=== PATIENT | male | born 1960 | race Caucasian/White ===

== ENCOUNTER → 2017-07-18 | Outpatient (CLI) | payer BC ==
--- NOTE | 2017-07-18 14:38 | DIAGNOSTIC IMAGING REPORT ---
LEFT HIP 2 VIEWS HISTORY: M25.552 Left hip pain ACUTE [id number] COMPARISON: None. FINDINGS: There is no fracture or dislocation. Soft tissues are unremarkable. The visualized pelvic bones are intact. Moderate cartilage space narrowing with marginal osteophytes seen within the left hip consistent with osteoarthritis. There is a 1.8 cm intra-articular loose body anterior to the left femoral neck. IMPRESSION: 1. No fracture or dislocation within the left hip. 2. Moderate left hip osteoarthritis. 3. A 1.8 cm intra-articular loose body within the left hip. Electronically signed by: Moe Cagle M.D. 07/18/2017 2:36 PM Dictated Date/Time: 07/18/2017 2:35 PM
== END | disposition home or self-care (01) ==
LOC: C.RAD1850 14:24
PROVIDERS: ATTEND Internal Medicine
DX: M25.552 Pain in left hip (principal); M16.12 Unilateral primary osteoarthritis, left hip; M24.052 Loose body in left hip

== ENCOUNTER → 2017-08-14 | Outpatient (CLI) | payer BC ==
[2017-08-14 17:39] LABS: BASO % 0.4 %; BASO ABS # 0.03 K/uL (0-0.2); EOS % 2.9 %; HEMATOCRIT 44.4 % (42-52); HEMOGLOBIN 14.8 g/dL (14.0-18.0); IG# 0.01 K/uL (0.00-0.02); LYMPH % 27.4 %; LYMPH ABS # 1.88 K/uL (1.2-3.4); MEAN CELL VOLUME 86.7 fL (80-100); MEAN CORPUSCULAR HEMOGLOBIN 28.9 pg (25-34); MEAN CORPUSCULAR HGB CONC 33.3 g/dl (32-36); MEAN PLATELET VOLUME 12.2 fL (7.4-10.4); MONO % 8.9 %; MONO ABS # 0.61 K/uL (0.11-0.59); NEUT % 60.3 %; NEUT ABS # 4.13 K/uL (1.4-6.5); PLATELET COUNT 177 K/uL (130-400); RED CELL DISTRIBUTION WIDTH CV 13.8 % (11.5-14.5); RED CELL DISTRIBUTION WIDTH SD 43.7 fL (36.4-46.3); WHITE BLOOD COUNT 6.86 K/uL (4.8-10.8)
[2017-08-14 17:55] LABS: ALBUMIN 3.5 gm/dl (3.4-5.0); ALT/SGPT 39 U/L (12-78); AST/SGOT 18 U/L (15-37); BLOOD UREA NITROGEN 21 mg/dl (7-18); CALCIUM 9.1 mg/dl (8.5-10.1); CARBON DIOXIDE 30 mmol/L (21-32); CHOLESTEROL 184 mg/dl (0-200); CREATININE 0.99 mg/dl (0.60-1.40); GLUCOSE 102 mg/dl (70-99); POTASSIUM 4.6 mmol/L (3.5-5.1); SODIUM 138 mmol/L (136-145)
[2017-08-14 17:59] LABS: ALKALINE PHOSPHATASE 81 U/L (45-117); LDL CHOLESTEROL CALCULATED 114 mg/dl; TOTAL PROTEIN 7.1 gm/dl (6.4-8.2)
[2017-08-15 06:22] LABS: HEMOGLOBIN A1C 5.7 % (4.5-5.6)
== END | disposition home or self-care (01) ==
LOC: C.LABBFT 11:15
PROVIDERS: ATTEND Nurse Practitioner
DX: E78.00 Pure hypercholesterolemia, unspecified (principal); R73.03 Prediabetes; N40.0 Benign prostatic hyperplasia without lower urinary tract symptoms

== ENCOUNTER → 2017-09-18 | Outpatient (CLI) | payer BC | END | disposition home or self-care (01) | LOC: C.RDSM 15:15 | PROVIDERS: ATTEND Orthopaedic Surgery | DX: M25.552 Pain in left hip (principal) ==

== ENCOUNTER 2017-10-12 16:50 | Emergency (ER) | payer BC ==
[~2017-10-12] VITALS: Ht 193 cm; Wt 196.0 kg
[2017-10-12] MEDS ORDERED: CEFAZOLIN SOD 1 GM VIAL IV STA (17:20)
[2017-10-12] MEDS ORDERED: CARV12.52 PO (17:50)
[2017-10-12] MEDS ORDERED: TRAM-10 PO (17:50)
[2017-10-12] MEDS ORDERED: ALPR-411 PO (17:50)
[2017-10-12] MEDS ORDERED: LAMO200T PO (17:50)
[2017-10-12] MEDS ORDERED: TAMS0.4C38 PO (17:50)
[2017-10-12] MEDS ORDERED: PRLSR20 PO (17:50)
[2017-10-12] MEDS ORDERED: DICL75TA2 PO (17:50)
[2017-10-12] MEDS ORDERED: CITA40TA4 PO (17:50)
[2017-10-12] MEDS ORDERED: POTA10CA28 PO (17:50)
[2017-10-12] MEDS ORDERED: PRVC/40 PO (17:50)
[2017-10-12] MEDS ORDERED: LISI40TA PO (17:50)
[2017-10-12] MEDS ORDERED: FURO-85 PO (17:50)
[2017-10-12 17:53] VITALS: O2SAT 91
[2017-10-12 17:53] LABS: BASO % 0.2 %; BASO ABS # 0.02 K/uL (0-0.2); EOS % 0.6 %; EOS ABS # 0.07 K/uL (0-0.5); HEMATOCRIT 40.6 % (42-52); IG# 0.03 K/uL (0.00-0.02); LYMPH % 9.1 %; LYMPH ABS # 1.07 K/uL (1.2-3.4); MEAN CELL VOLUME 83.7 fL (80-100); MEAN CORPUSCULAR HEMOGLOBIN 28.9 pg (25-34); MEAN CORPUSCULAR HGB CONC 34.5 g/dl (32-36); MEAN PLATELET VOLUME 11.2 fL (7.4-10.4); MONO ABS # 1.17 K/uL (0.11-0.59); NEUT % 79.8 %; NEUT ABS # 9.37 K/uL (1.4-6.5); PLATELET COUNT 159 K/uL (130-400); RED CELL DISTRIBUTION WIDTH CV 13.5 % (11.5-14.5); RED CELL DISTRIBUTION WIDTH SD 40.9 fL (36.4-46.3); WHITE BLOOD COUNT 11.73 K/uL (4.8-10.8)
[2017-10-12] MEDS ORDERED: ACET-1256 PO (17:55)
[2017-10-12 17:59] VITALS: Ht 193 cm; Wt 196.0 kg
[2017-10-12 18:03] LABS: PTT PATIENT 26.1 SECONDS (21.0-31.0)
[2017-10-12 18:18] LABS: ALBUMIN 3.3 gm/dl (3.4-5.0); CALCIUM 8.9 mg/dl (8.5-10.1); CREATININE 0.8 mg/dl (0.60-1.40); POTASSIUM 3.8 mmol/L (3.5-5.1)
[2017-10-12 18:21] LABS: TOTAL PROTEIN 7.3 gm/dl (6.4-8.2)
--- NOTE | 2017-10-12 19:00 | DIAGNOSTIC IMAGING REPORT ---
R VENOUS DOPP LOWER EXT UNILAT CLINICAL HISTORY: right leg eval for dvt pain. Edema. TECHNIQUE: Venous Doppler COMPARISON STUDY: None FINDINGS: Normal study IMPRESSION: Normal study The above report was generated using voice recognition software. It may contain grammatical, syntax or spelling errors. Electronically signed by: Jovanny Rose M.D. 10/12/2017 6:58 PM Dictated Date/Time: 10/12/2017 6:58 PM
[2017-10-12] MEDS ORDERED: SULF800T23 PO (19:11)
[2017-10-12] MEDS ORDERED: CEPH500C PO (19:11)
[2017-10-12] MEDS ORDERED: CEPHALEXIN 500MG HOME PACK 1 EA BTL PO ONE (19:15)
[2017-10-12] MEDS ORDERED: SEPTRA DS HOME PACK 1 EA VIAL PO ONE (19:15)
[2017-10-12 19:35] VITALS: BP 129/79; PULSE 87; TEMP 37; O2SAT 93
--- NOTE | 2017-10-13 00:20 | EMERGENCY ROOM VISIT NOTE ---
History Report prepared by Hans: Liam Schneider Under the Supervision of: Dr. Erwin Thapa M.D. First contact with patient: 17:11 Chief Complaint: INFECTION Stated Complaint: RIGHT LOWER LEG INFECTION History of Present Illness The patient is a 56 year old male with a history of cellulitis who presents to the Emergency Room with complaints of a worsening right lower leg infection that was discovered around 0400 this morning. He states that yesterday he had chills and shakes, and just could not get warm. The patient says that he did not take his temperature, but he felt feverish. He states that he has felt that he has not been regulating his temperature well off and on today. The patient states that he did not injure his leg. He says that when he first noticed it, there was a small area of redness on the back of his right lower leg that was warm and hot, but then the area of redness and pain has been spreading ever since then. He denies any headaches, vomiting, chest pain, abdominal pain, or left leg problems. The patient states that he has not had any recent travels, and has no history of clots in her legs or lungs. He notes that in 1998, he came back from a month from [place] and had cellulitis around the same area of the right leg. Source of History: patient Onset: 0400 this morning Position: leg (right lower) Quality: other (infection) Timing: worsening Associated Symptoms: + fevers (felt feverish), + chills, No headache, No chest pain, No vomiting, No abdominal pain Note: Associated symptoms: Right lower leg warm and hot with pain. Review of Systems See HPI for pertinent positives & negatives. A total of 10 systems reviewed and were otherwise negative. Past Medical & Surgical Medical Problems: (1) HLD (hyperlipidemia) (2) HTN (hypertension) Family History Diabetes mellitus Heart disease Social History Smoking Status: Never Smoker Drug Use: none Marital Status: Housing Status: lives with family Current/Historical Medications Scheduled Carvedilol (Coreg), 1 TAB PO BID Cephalexin Monohydrate (Keflex), 500 MG PO TID Citalopram (Citalopram Hydrobromide), 1 TAB PO DAILY Furosemide (Lasix), 1 TAB PO DAILY Lamotrigine (Lamictal), 1 TAB PO DAILY Lisinopril (Zestril), 1 TAB PO DAILY Omeprazole (Prilosec), 20 MG PO DAILY Potassium Chloride (Micro-K Ext Rel), 10 MEQ PO DAILY Pravastatin Sod (Pravastatin Sodium), 1 TAB PO HS Sulfa/Trimethoprim (Bactrim Ds 800MG/160MG), 1 TAB PO BID Tamsulosin Hcl (Flomax), 1 CAP PO DAILY Scheduled PRN Acetaminophen (Tylenol), 2 TAB PO TID PRN for Pain Alprazolam (Xanax), 0.5 MG PO DAILY PRN for Anxiety Diclofenac Sodium (Voltaren), 1 TAB PO BID PRN for Pain Tramadol (Ultram), 50-100 MG PO Q4H PRN for Pain Allergies Coded Allergies: No Known Allergies (Unverified , 10/12/17) Physical Exam Vital Signs Date Time Temp Pulse Resp B/P (MAP) Pulse Ox O2 Delivery O2 Flow Rate FiO2 10/12/17 19:35 37.0 87 20 129/79 93 10/12/17 17:54 85 20 117/58 91 Room Air 10/12/17 17:53 91 Room Air 10/12/17 16:59 37.0 89 22 181/132 96 Room Air Physical Exam Constitutional: Vital signs reviewed. Eyes: Pupils are equal round reactive to light. Conjunctiva are noninjected. ENT: Pharynx is clear without erythema or exudate. Mucous membranes are moist. Neck supple without meningeal signs. Respiratory: Clear to auscultation bilaterally. Breath sounds are equal bilaterally. Cardiovascular: Regular rate and rhythm. No rubs or gallops. GI: Soft, nondistended and nontender. Bowel sounds are present. Musculoskeletal: Right leg shows erythema to the posterior mid calf and anterior fernandes above ankle. Integumentary: No cyanosis. Neurological: The patient is awake and alert. No focal deficits. Psychiatric: Normal affect. Medical Decision & Procedures ER Provider Diagnostic Interpretation: US results as stated below per my review and radiologist interpretation. R VENOUS DOPP LOWER EXT UNILAT CLINICAL HISTORY: right leg eval for dvt pain. Edema. TECHNIQUE: Venous Doppler COMPARISON STUDY: None FINDINGS: Normal study IMPRESSION: Normal study The above report was generated using voice recognition software. It may contain grammatical, syntax or spelling errors. Electronically signed by: Jovanny Rose M.D. 10/12/2017 6:58 PM Dictated Date/Time: 10/12/2017 6:58 PM Laboratory Results 10/12/17 17:35 Red Blood Count 4.85, Mean Corpuscular Volume 83.7, Mean Corpuscular Hemoglobin 28.9, Mean Corpuscular Hemoglobin Concent 34.5, Mean Platelet Volume 11.2, Neutrophils (%) (Auto) 79.8, Lymphocytes (%) (Auto) 9.1, Monocytes (%) (Auto) 10.0, Eosinophils (%) (Auto) 0.6, Basophils (%) (Auto) 0.2, Neutrophils # (Auto ) 9.37, Lymphocytes # (Auto) 1.07, Monocytes # (Auto) 1.17, Eosinophils # (Auto ) 0.07, Basophils # (Auto) 0.02 10/12/17 17:35 Test 10/12/17 17:35 10/12/17 17:44 White Blood Count 11.73 K/uL (4.8-10.8) Red Blood Count 4.85 M/uL (4.7-6.1) Hemoglobin 14.0 g/dL (14.0-18.0) Hematocrit 40.6 % (42-52) Mean Corpuscular Volume 83.7 fL (80-100) Mean Corpuscular Hemoglobin 28.9 pg (25-34) Mean Corpuscular Hemoglobin Concent 34.5 g/dl (32-36) Platelet Count 159 K/uL (130-400) Mean Platelet Volume 11.2 fL (7.4-10.4) Neutrophils (%) (Auto) 79.8 % Lymphocytes (%) (Auto) 9.1 % Monocytes (%) (Auto) 10.0 % Eosinophils (%) (Auto) 0.6 % Basophils (%) (Auto) 0.2 % Neutrophils # (Auto) 9.37 K/uL (1.4-6.5) Lymphocytes # (Auto) 1.07 K/uL (1.2-3.4) Monocytes # (Auto) 1.17 K/uL (0.11-0.59) Eosinophils # (Auto) 0.07 K/uL (0-0.5) Basophils # (Auto) 0.02 K/uL (0-0.2) RDW Standard Deviation 40.9 fL (36.4-46.3) RDW Coefficient of Variation 13.5 % (11.5-14.5) Immature Granulocyte % (Auto) 0.3 % Immature Granulocyte # (Auto) 0.03 K/uL (0.00-0.02) Prothrombin Time 10.6 SECONDS (9.0-12.0) Prothromb Time International Ratio 1.0 (0.9-1.1) Activated Partial Thromboplast Time 26.1 SECONDS (21.0-31.0) Partial Thromboplastin Ratio 1.0 Anion Gap 6.0 mmol/L (3-11) Est Creatinine Clear Calc Drug Dose 192.5 ml/min Estimated GFR () 116.6 Estimated GFR (Non- 100.6 BUN/Creatinine Ratio 19.0 (10-20) Calcium Level 8.9 mg/dl (8.5-10.1) Total Bilirubin 0.6 mg/dl (0.2-1) Aspartate Amino Transf (AST/SGOT) 13 U/L (15-37) Alanine Aminotransferase (ALT/SGPT) 26 U/L (12-78) Alkaline Phosphatase 90 U/L (45-117) Total Protein 7.3 gm/dl (6.4-8.2) Albumin 3.3 gm/dl (3.4-5.0) Globulin 4.0 gm/dl (2.5-4.0) Albumin/Globulin Ratio 0.8 (0.9-2) Bedside Lactic Acid Venous 0.77 mmol/L (0.90-1.70) Laboratory results as reviewed by me. Medications Administered Medications (Trade) Dose Ordered Sig/Karel Route Start Time Stop Time Status Last Admin Dose Admin Cefazolin Sodium (Ancef Inj) 1,000 mg NOW STAT IV 10/12/17 17:20 10/12/17 17:22 DC 10/12/17 17:53 1,000 MG Cephalexin Monohydrate (Keflex 500MG Home Pack) 1 homepack NOW ONCE PO 10/12/17 19:15 10/12/17 19:16 DC 10/12/17 19:15 1 HOMEPACK Trimethoprim/ Sulfamethoxazole (Sulfameth/ Trimeth Ds 800/ 160MG Home Pack) 1 homepack UD ONCE PO 10/12/17 19:15 10/12/17 19:16 DC 10/12/17 19:15 1 HOMEPACK ED Course 171: The patient was evaluated in room B9. A complete history and physical exam was performed. 1719: Ancef Inj 1000 mg IV. 1908: Upon reevaluation, the patient appeared to be resting comfortably. I discussed tonight's findings with him, and recommended that he follow-up with his doctor in 2 days. He verbalized agreement of the treatment plan. He was discharged home. 1914: Sulfameth/Trimeth Ds 800/160MG Home Pack 1 homepack PO, Keflex 500MG Home Pack 1 homepack PO. Medical Decision This is a 56-year-old male presents with right leg pain. Differential diagnosis includes cellulitis, sepsis, abscess, DVT, superficial thrombophlebitis. I did perform a limited focused review of portions of the patient's old chart on the electronic medical record. The patient has had no recent pertinent visits to this hospital. I did evaluate the patient as noted above. IV access was established. I did treat the patient with Ancef 1 g IV. I did order and review the patient's blood work as noted in the electronic medical record. White blood cell count is slightly elevated. Lactic acid is not elevated. I did order a Doppler ultrasound of the right leg. I did review the images myself as well as the radiology report as described above. There is no evidence of DVT. I did discuss the test results with the patient. He has no signs of sepsis. He was advised to follow-up in 48 hours with his doctor for reassessment of his cellulitis. He was discharged with a prescription for Keflex and Bactrim and given home packs for these medications. He was given return instructions as outlined below. Medication Reconcilliation Current Medication List: was personally reviewed by me Blood Pressure Screening Patient's blood pressure: Elevated blood pressure Impression Primary Impression: Cellulitis of right leg Scribe Attestation The scribe's documentation has been prepared under my direct and personally reviewed by me in its entirety. I confirm that the note above accurately reflects all work, treatment, procedures, and medical decision making performed by me. Departure Information Dispostion Home / Self-Care Prescriptions Cephalexin Monohydrate (Keflex) 500 Mg Cap 500 MG PO TID for 7 Days, #21 CAP Prov: Erwin Thapa M.D. 10/12/17 Sulfa/Trimethoprim (Bactrim Ds 800MG/160MG) Tab 1 TAB PO BID, #14 TAB Prov: Erwin Thapa M.D. 10/12/17 Referrals Krissy [facility] C.R[facility]neN[facility]neP[facility] (PCP) Forms HOME CARE DOCUMENTATION FORM, IMPORTANT VISIT INFORMATION, WORK / SCHOOL INSTRUCTIONS Patient Instructions Cellulitis Dc, My [facility] Additional Instructions You have been examined and treated today on an emergency basis only. This is not a substitute for, or an effort to provide, complete comprehensive medical care. It is impossible to recognize and treat all injuries or illnesses in a single emergency department visit. It is therefore important that you follow up closely with your physician within 48 hours. Call as soon as possible for an appointment. Return for worsening symptoms or if you develop fever, vomiting, or any other concerning symptoms.
== END 2017-10-12 19:35 | disposition home or self-care (01) ==
LOC: C.EDB 16:52
DX: L03.115 Cellulitis of right lower limb (principal); E78.5 Hyperlipidemia, unspecified; I10 Essential (primary) hypertension; Z82.49 Family history of ischemic heart disease and other diseases of the circulatory system

== ENCOUNTER → 2017-10-18 | Outpatient (CLI) | payer BC ==
[~2017-10-18] MED LIST: ACET-1256 PO; ALPR-411 PO; CARV12.52 PO; CEPH500C PO; CITA40TA4 PO; DICL75TA2 PO; FURO-85 PO; LAMO200T PO; LISI40TA PO; POTA10CA28 PO; PRLSR20 PO; PRVC/40 PO; SULF800T23 PO; TAMS0.4C38 PO; TRAM-10 PO
[2017-10-18 12:21] LABS: BASO % 0.4 %; BASO ABS # 0.04 K/uL (0-0.2); EOS % 1.9 %; EOS ABS # 0.17 K/uL (0-0.5); HEMATOCRIT 42.4 % (42-52); HEMOGLOBIN 14.6 g/dL (14.0-18.0); IG# 0.04 K/uL (0.00-0.02); LYMPH % 19.6 %; LYMPH ABS # 1.74 K/uL (1.2-3.4); MEAN CELL VOLUME 83.5 fL (80-100); MEAN CORPUSCULAR HEMOGLOBIN 28.7 pg (25-34); MEAN CORPUSCULAR HGB CONC 34.4 g/dl (32-36); MEAN PLATELET VOLUME 10.9 fL (7.4-10.4); MONO % 7.9 %; NEUT % 69.8 %; NEUT ABS # 6.21 K/uL (1.4-6.5); PLATELET COUNT 257 K/uL (130-400); RED CELL DISTRIBUTION WIDTH CV 13.4 % (11.5-14.5); RED CELL DISTRIBUTION WIDTH SD 40.5 fL (36.4-46.3)
[2017-10-18 12:46] LABS: ALT/SGPT 31 U/L (12-78); AST/SGOT 17 U/L (15-37)
== END | disposition home or self-care (01) ==
LOC: C.LABBFT 10:18
PROVIDERS: ATTEND Nurse Practitioner
DX: Z71.3 Dietary counseling and surveillance (principal)

== ENCOUNTER → 2018-03-11 | Outpatient (CLI) | payer BC ==
[~2018-03-11] MED LIST changes: -CEPH500C PO
[2018-03-11 13:28] LABS: HEMOGLOBIN A1C 5.7 % (4.5-5.6)
[2018-03-11 14:00] LABS: ALBUMIN 3.7 gm/dl (3.4-5.0); ALKALINE PHOSPHATASE 87 U/L (45-117); ALT/SGPT 27 U/L (12-78); AST/SGOT 15 U/L (15-37); BLOOD UREA NITROGEN 17 mg/dl (7-18); CALCIUM 9.2 mg/dl (8.5-10.1); CARBON DIOXIDE 30 mmol/L (21-32); CREATININE 0.88 mg/dl (0.60-1.40); GLUCOSE 110 mg/dl (70-99); POTASSIUM 4.4 mmol/L (3.5-5.1); SODIUM 138 mmol/L (136-145); TOTAL PROTEIN 7.2 gm/dl (6.4-8.2)
== END | disposition home or self-care (01) ==
LOC: C.LABBFT 07:54
PROVIDERS: ATTEND Nurse Practitioner
DX: M16.12 Unilateral primary osteoarthritis, left hip (principal)